=== PATIENT | female | born 1950 | race Caucasian/White ===

== ENCOUNTER 2017-02-14 10:12 | Emergency (ER) | payer OTHER ==
--- NOTE | ~2017-02-14 | EKG ---
PATIENT: LUCERO BLAIR UNIT #: [id number] Ventricular Rate: 72 BPM Atrial Rate: 72 BPM P-R Interval: 200 ms QRS Duration: 84 ms Q-T Interval: 394 ms QTC Calculation(Bezet): 431 ms P [place]: 38 degrees Calculated R [place]: 36 degrees Calculated T [place]: 27 degrees Diagnosis Line: Normal sinus rhythm Diagnosis Line: Normal ECG Diagnosis Line: When compared with ECG of 30-JUN-2016 00:44, Diagnosis Line: No significant change was found Diagnosis Line: Confirmed by FRANCESCO PATEL MD ([id number]) on 02/15/2017 Diagnosis Line: 12:06:41 AM INTERPRETING MD: JORGE MTZ
--- NOTE | ~2017-02-14 | CR72 ---
[facility] A Service of [facility] & [facility] RADIOLOGY TEXT RESULTS PATIENT: LUCERO BLAIR LOCATION: [facility] : 48 UNIT #: [id number] AGE: [address]: Samir Morel MD SEX: F ORDER DR: [id number] [facility] [address] [place], [place] [address] [id number] E MR#: [id number] Acc #: [id number] NAME: LUCERO BLAIR. : 1950 SEX: F STUDY DATE/TIME: 02/14/2017 1058 UNIT: [facility] ROOM: STUDY DESCRIPTION: CR Chest Single View Portable Attending Physician: Samir Morel M.D. Ordering Physician: Samir Morel M.D. Primary Care Physician: No Primary Care Physician MEDICAL IMAGING REPORT This report is preliminary unless electronic signature is present EXAM Chest, portable, 02/14/2017, 1058 hours. CLINICAL HISTORY 66 year old with facial spasms, headaches, and altered mental status today. History of hypertension, diabetes, and mitral valve prolapse. COMPARISON 06/29/2016 FINDINGS Portable upright chest demonstrates normal cardiac, mediastinal, and hilar contours. The lungs are clear and there are no effusions. IMPRESSION No acute cardiopulmonary findings. No change from 06/29/2016. Dictated by... So Tran M.D. THIS IS AN ELECTRONICALLY VERIFIED REPORT So Tran M.D. at 02/14/2017 6:57 PM MARISA/deanna TD: 02/14/2017 16:08 JOB #: [id number] MEDICAL IMAGING REPORT Page 1 of 1 COPY
--- NOTE | ~2017-02-14 | CT71 ---
[facility] A Service of [facility] RADIOLOGY TEXT RESULTS PATIENT: LUCERO BLAIR LOCATION: [facility] : 48 UNIT #: [id number] AGE: [address]: Samir Morel MD SEX: F ORDER DR: [id number] [facility] [address] [place], [place] [address] [id number] E MR#: [id number] Acc #: [id number] NAME: LUCERO BLAIR. : 1950 SEX: F STUDY DATE/TIME: 02/14/2017 11:53 UNIT: [facility] ROOM: STUDY DESCRIPTION: CT Head Wo Contrast Attending Physician: Samir Morel M.D. Ordering Physician: Samir Morel M.D. Primary Care Physician: Primary Care Physician No MEDICAL IMAGING REPORT This report is preliminary unless electronic signature is present EXAM Head CT without contrast HISTORY Right-sided weakness with difficulty swallowing and right-sided headache since earlier this morning. COMPARISON 10/02/2013 TECHNIQUE Axial images were obtained without contrast. This CT exam was performed with one or more of the following radiation dose reduction techniques: automatic exposure control, adjustment of mA and/or kV according to patient size, and iterative reconstruction. FINDINGS Axial noncontrast images were obtained from the skull base to the vertex. Ventricular size and configuration are normal. There is no evidence of acute infarct or hemorrhage. There are no extra-axial fluid collections. No mass lesion or mass effect is seen. There are no skull fractures. IMPRESSION Normal noncontrast head CT. Dictated by... Reddy Bassett M.D. THIS IS AN ELECTRONICALLY VERIFIED REPORT Reddy Bassett M.D. at 02/14/2017 5:00 PM HERNESTO/alex [facility] A Service of [facility] & [facility] RADIOLOGY TEXT RESULTS PATIENT: LUCERO BLAIR LOCATION: [facility] : 48 UNIT #: [id number] AGE: [address]: Samir Morel MD SEX: F ORDER DR: TD: 02/14/2017 16:45 JOB #: [id number] MEDICAL IMAGING REPORT Page 1 of 1 COPY
[~2017-02-14 10:12] MED LIST: ACETAMINOPHEN325 MG PO; AMITIZA24 MCG PO; AMITRYPTYLINE PO; AMLODIPINE BESY10 MG PO; ANASTROZOLE1 MG PO; ANEXSIA 7.5/3251 TA1 PO; ASPIRINEC PO; ATENOLOL50 MG PO; B-121000 MC1 PO; BACLOFEN10 MG PO; BOTOX COSMETI50 UNIT IM; BOTOX INJ; CALCIUM 600-D T1 TAB PO; CALCIUM CITRATE1 T12 PO; CARAFATE1 G PO; CARBAMAZEPINE200 M2 PO; CARVEDILOL25 MG PO; CLINDAMYCIN HC300 MG PO; COATED ASPIRIN325 M1 PO; DESYREL50 MG DOB; DICLOFENAC SODI50 MG PO; FLONASE16 GM; FOSAMAX70 MG PO; GLIPIZIDE10 MG PO; GLUCOPHAGE500 M1 PO; GLUCOPHAGE500 MG PO; HYDROCHLOROTHIA25 MG PO; HYDROXYZINE HCL25 M1 PO; IMDUR-ER30 M1 PO; INDERAL20 MG PO; INDOMETHACIN25 MG PO; KLONOPIN0.5 MG PO; LIPITOR20 MG DOB; LIPITOR20 MG PO; LISINOPRIL20 MG PO; LO-DOSE ASPIRIN81 M1 PO; LORTAB 5/500 TA1 TA1 PO; METFORMIN HCL500 M1 PO; NEURONTIN300 MG PO; NILSTAT PO; NITROGLYGERIN0.4 MG SL; NORCO 10/3251 TAB PO; NORVASC10 MG PO; NOVOLIN 70/30 V10 M1 INJ; NOVOLIN 70100 UNITS/; NOVOLIN SUBQ; NOVOLOG100 U/M2 INJ; NOVOLOG7030 SUBQ; OYSTER SHELL W PO; PAIN RELIEF325 MG PO; PANTOPRAZOLE SO20 MG PO; PERCOCET 51 UDTAB 5/ PO; PHENERGAN25 M1 PO; PHENERGAN25 MG PO; PRILOSEC PO; PROTONIX PO; STOOL SOFTENER100 M1 PO; TENORMIN50 MG PO; TIZANIDINE HCL2 M1 PO; TOPAMAX25 M1; ULTRAM PO; VENTOLIN; VERAPAMIL HCL80 MG PO; VIBRAMYCIN100 M1 PO; ZANTAC300 MG PO; ZITHROMAX PO; ZOFRAN ODT4 MG/UDTAB PO; ZYRTEC PO; ZYRTEC10 M2 PO
[2017-02-14] MEDS ORDERED: TYLENOL EXTRA500 M1 PO (10:31)
[2017-02-14] MEDS ORDERED: BUSPAR5 M1 PO (10:32)
[2017-02-14] MEDS ORDERED: CELEXA10 MG PO (10:32)
[2017-02-14] MEDS ORDERED: CLARISPRAY9.9 ML (10:32)
[2017-02-14] MEDS ORDERED: LISINOPRIL20 MG PO (10:33)
[2017-02-14] MEDS ORDERED: CLARITIN10 M2 PO (10:33)
[2017-02-14] MEDS ORDERED: NOVOLIN 70100 UNITS/ SUBQ (10:34)
[2017-02-14] MEDS ORDERED: POLYOX WSR-3011 GM MC (10:35)
[2017-02-14] MEDS ORDERED: PERCOCET5/325 PO (10:35)
[2017-02-14] MEDS ORDERED: TRIAMCINOLONE AC1 GM EXT (10:36)
[2017-02-14] MEDS ORDERED: TIZANIDINE HCL4 M1 PO (10:36)
[2017-02-14 11:12] LABS: BASOPHIL# 0.1 X10e3 (0-0.3); BASOPHIL% 0.8 % (0-2.5); EOSINOPHIL# 0.2 X10e3 (0-0.7); EOSINOPHIL% 2.5 % (0.0-7.0); HEMATOCRIT 34.3 % (35.0-45.0); HEMOGLOBIN 11.5 gm/dL (12.0-16.0); LYMPHOCYTE% 13.5 % (17.0-45.0); MEAN CELL VOLUME 82.5 FL (83-96); MEAN CORPUSCULAR HEMOGLOBIN 27.7 PG (28-34); MEAN CORPUSCULAR HGB CONC 33.5 g/dL (30-36); MEAN PLATELET VOLUME 7.4 FL (6.5-11.5); MONOCYTE# 0.6 X10e3 (0-1.0); NEUTROPHIL# 5.3 X10e3 (1.5-7.1); NEUTROPHIL% 74.2 % (40-75); PLATELET COUNT 278 X10e3 (140-420); RED BLOOD COUNT 4.15 X10e (3.90-5.30); RED CELL DISTRIBUTION WIDTH 15.3 % (11.0-15.5); WHITE BLOOD COUNT 7.2 X10e3 (4.0-10.5)
[2017-02-14 11:16] LABS: DIFF IND NO
[2017-02-14 11:25] LABS: PARTIAL THROMBOPLASTIN TIME 27.4 SECONDS (23.5-31.3); PROTHROMBIN TIME (PATIENT) 11.1 SECONDS (10.0-11.7)
[2017-02-14 11:25] LABS: POC - CKMB 1.3 ng/mL (0.0-7.9); POC - TROPONIN <0.05 ng/mL (<=0.05)
[2017-02-14 11:39] LABS: ALBUMIN SERUM 4.3 g/dL (3.5-5.0); BILIRUBIN, DIRECT 0.1 mg/dL (0.0-0.2); BILIRUBIN,INDIRECT 0.5 mg/dL (0.0-0.9); BILIRUBIN,TOTAL 0.6 mg/dL (0.2-2.0); CALCIUM SERUM 9.6 mg/dL (8.4-10.2); GLOM FILT RATE Estimated 58.3 mL/min (>60); PROTEIN TOTAL SERUM 7.7 g/dL (6.0-8.3)
[2017-02-14 12:27] LABS: URINE SOURCE CATH
[2017-02-14 12:34] LABS: URINE APPEARANCE CLEAR; URINE BILIRUBIN NEG (NEG); URINE BLOOD NEG (NEG); URINE COLOR YELLOW; URINE GLUCOSE NEG (NEG); URINE KETONE NEG (NEG); URINE LEUKOCYTE ESTERASE NEG (NEG); URINE NITRATE NEG (NEG); URINE PROTEIN TRACE (NEG); URINE SPECIFIC GRAVITY 1.021 (1.003-1.035); URINE UROBILINOGEN 0.2 MG/DL (NEG)
[2017-02-14 12:40] LABS: CULTURE INDICATED? NO
[2017-02-14 12:41] LABS: POC - CKMB 1.2 ng/mL (0.0-7.9); POC - TROPONIN <0.05 ng/mL (<=0.05)
== END 2017-02-14 13:47 | disposition home or self-care (01) ==
LOC: CED 10:12
PROVIDERS: Emergency Medicine
DX: G25.71 Drug induced akathisia (principal); R51 Headache; Z88.0 Allergy status to penicillin; Z88.2 Allergy status to sulfonamides; Z88.8 Allergy status to other drugs, medicaments and biological substances; Z79.899 Other long term (current) drug therapy; Z79.82 Long term (current) use of aspirin
CPT/HCPCS: 36415; 70450; 71010; 80048; 80076; 81003; 82553; 82947; 84484; 85025; 85610; 85652; 85730; 93005; 96374; 96375; 99285; J1200; J1885